=== PATIENT | male | born 1955 | race Two or more races ===

== ENCOUNTER 2017-06-08 14:05 | Emergency (ER) | payer MEDICARE ==
[2017-06-08 14:25] VITALS: BP 123/75
--- NOTE | 2017-06-08 15:01 | RAD ---
HISTORY: Right calf pain and edema Similar examination dated April 28, 2013 TECHNIQUE: Multiple transverse and longitudinal ultrasound images were obtained of the veins of the right lower extremity using grayscale, color Doppler, and spectral Doppler imaging with and without compression and with augmentation. FINDINGS: VEINS: The common femoral vein, deep femoral vein and femoral vein are compressible throughout their course, with normal flow on color Doppler imaging and normal response to augmentation on spectral Doppler imaging. Within the right popliteal vein there is hyperechogenic nonocclusive material that corresponds to more acute looking thrombus on the May 06, 2013 venous duplex examination. SOFT TISSUES: Grossly normal. No large popliteal fossa cyst was identified. IMPRESSION: Sonographic findings are most consistent with chronic nonocclusive thrombus (i.e. "scar") in the right popliteal vein corresponding to thrombus visualized on the May 06, 2013 DVT examination. The remaining visualized veins are clear.
--- NOTE | 2017-06-08 15:15 | UC ---
Lower Extremity/Ankle HPI - HPI Summary HPI Summary: HISTORY OF 2012 DVT IN RIGHT CALF. HAD BEEN ON WARFARIN FOR SEVERAL YEARS, CURRENTLY OFF. 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 NO SHORTNESS OF BREATH. NO CHEST PAIN. - History of Current Complaint Chief Complaint: UCLowerExtremity Stated Complaint: LEG PAIN Time Seen by Provider: 06/08/17 14:18 Hx Obtained From: Patient Onset/Duration: Gradual Onset, Lasting Days, Still Present Severity Initially: Mild Severity Currently: Mild Aggravating Factor(s): Standing, Ambulation Able to Bear Weight: Yes - Risk Factors Gout Risk Factors: Negative DVT Risk Factors: Prior DVT - Allergies/Home Medications Allergies/Adverse Reactions: Allergies Allergy/AdvReac Type Severity Reaction Status Date / Time No Known Allergies Allergy Verified 08/15/16 14:13 Home Medications: Home Medications Aspirin 06/08/17 [History] PMH/Surg Hx/FS Hx/Imm Hx Previously Healthy: Yes - Surgical History Surgical History: Yes Surgery Procedure, Year, and Place: double hernia repair, right lung 2 lobes removed - Family History Known Family History: Positive: Unknown, Other - DVT - Social History Occupation: Employed Part-time, Retired Lives: With Family Alcohol Use: None Substance Use Type: Prescribed Smoking Status (MU): Heavy Every Day Tobacco Smoker Type: Cigarettes Amount Used/How Often: 1 - 2 ppd Have You Smoked in the Last Year: Yes Review of Systems Constitutional: Negative Skin: Negative Eyes: Negative ENT: Negative Respiratory: Negative Cardiovascular: Negative Gastrointestinal: Negative Genitourinary: Negative Motor: Negative Neurovascular: Negative Musculoskeletal: Arthralgia, Calf Tenderness - RIGHT, Myalgia Neurological: Negative Psychological: Negative All Other Systems Reviewed And Are Negative: Yes Physical Exam Triage Information Reviewed: Yes Appearance: Well-Appearing, No Pain Distress, Well-Nourished Vital Signs: Initial Vital Signs Temp 98.2 F 06/08/17 14:16 Pulse 84 06/08/17 14:16 Resp 18 06/08/17 14:16 BP 123/75 06/08/17 14:16 Pulse Ox 97 06/08/17 14:16 Vital Signs Reviewed: Yes Eye Exam: Normal ENT Exam: Normal ENT: Positive: Normal ENT inspection, Hearing grossly normal, TMs normal Dental Exam: Normal Neck exam: Normal Neck: Positive: Supple, Nontender Respiratory: Positive: Chest non-tender, Normal breath sounds, No respiratory distress, No accessory muscle use Cardiovascular Exam: Normal Cardiovascular: Positive: RRR, No Murmur, Pulses Normal, Brisk Capillary Refill Abdominal Exam: Normal Musculoskeletal Exam: Normal Musculoskeletal: Positive: Strength Intact, ROM Intact, No Edema Neurological Exam: Normal Psychological Exam: Normal Skin Exam: Normal Lower Extremity Course/Dx - Differential Dx/Diagnosis Differential Diagnosis/HQI/PQRI: DVT, Fracture (Closed), Sprain, Strain Provider Diagnoses: RIGHT 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 RIGHT LEG PAIN Discharge - Discharge Plan Condition: Stable Disposition: HOME Patient Education Materials: Leg Pain (ED) Referrals: José Rebollar MD [Primary Care Provider] -
== END 2017-06-08 15:12 | disposition home or self-care (01) ==
LOC: UCEAST 14:05
DX: I82.531 Chronic embolism and thrombosis of right popliteal vein (principal); Z86.718 Personal history of other venous thrombosis and embolism; Z72.0 Tobacco use
CPT/HCPCS: 99211; G0463

== ENCOUNTER 2017-08-21 17:02 | Emergency (ER) | payer MEDICARE ==
[2017-08-21 17:26] VITALS: BP 139/79
[2017-08-21] MEDS ORDERED: methylPREDNISolone 125 MG* 2 ML VIAL IM ONE (18:16)
[2017-08-21] MEDS ORDERED: Albuterol/Ipratropium NEB.SOL* Albuterol 2.5 MG/Ipratropium 0.5 MG 3 ML INH ONE (18:17)
--- NOTE | 2017-08-21 18:36 | UC ---
Respiratory Complaint HPI - History of Current Complaint Chief Complaint: UCRespiratory Stated Complaint: HEADACHE COUGH Time Seen by Provider: 08/21/17 17:49 - Allergies/Home Medications Allergies/Adverse Reactions: Allergies Allergy/AdvReac Type Severity Reaction Status Date / Time No Known Allergies Allergy Verified 08/21/17 17:26 Home Medications: Home Medications Albuterol 2.5MG/3ML (0.083%)* [Ventolin 2.5 MG/3 ML NEB.NATALIA*] 1 udc PO Q4H PRN 08/21/17 [History Confirmed 08/21/17] PMH/Surg Hx/FS Hx/Imm Hx - Surgical History Surgical History: Yes Surgery Procedure, Year, and Place: double hernia repair, right lung 2 lobes removed - Family History Known Family History: Positive: Unknown, Other - DVT - Social History Alcohol Use: None Substance Use Type: Prescribed Smoking Status (MU): Heavy Every Day Tobacco Smoker Type: Cigarettes Amount Used/How Often: 1 - 2 ppd Have You Smoked in the Last Year: Yes Physical Exam Vital Signs: Initial Vital Signs Temp 96.9 F 08/21/17 17:21 Pulse 77 08/21/17 17:21 Resp 18 08/21/17 17:21 BP 139/79 08/21/17 17:21 Pulse Ox 99 08/21/17 17:21 UC Diagnostic Evaluation - Laboratory O2 Sat by Pulse Oximetry: 99
--- NOTE | 2017-08-21 23:14 | UC ---
Maximo Lowery Nikita, scribed for Debra Calhoun DO on 08/21/17 at 2302 . Respiratory Complaint HPI - HPI Summary HPI Summary: This patient is a 62 year old M presenting to [facility] with a chief complaint of cold-like symptoms since 2 days ago s/p exposure to cement dust the same day as getting his flu shot. Pt slept all night last night but still felt lousy today. Symptoms aggravated by exertion. Symptoms alleviated by sleep. Patient reports SOB/wheezing, malaise, nasal and sinus congestion/bassett/pain, cough, mild sore throat, laryngitis. Patient denies CP, fever, diaphoresis, dizziness, and N /V. - History of Current Complaint Chief Complaint: UCRespiratory Stated Complaint: HEADACHE COUGH Time Seen by Provider: 08/21/17 17:49 Hx Obtained From: Patient Onset/Duration: Sudden Onset, Lasting Days - 2 days ago, Still Present Timing: Constant Severity Initially: Moderate Severity Currently: Moderate Pain Intensity: 0 Pain Scale Used: 0-10 Numeric Character: Cough: Productive, Sputum Description: - yellow Aggravating Factors: Exertion Alleviating Factors: Other - sleep Associated Signs And Symptoms: Positive: Dyspnea, Wheezing, URI, Nasal Congestion - Patient reports BASSETT, SOB, malaise, nasal and sinus congestion, cough , mild sore throat, laryngitis, and SOB (worse with exertion). Patient denies CP , fever, diaphoresis, dizziness, and N/V., Hoarseness, Sinus Discomfort. Negative: Fever, Chills, Pleuritic Chest Pain, Hemoptysis, Dizziness - Allergies/Home Medications Allergies/Adverse Reactions: Allergies Allergy/AdvReac Type Severity Reaction Status Date / Time No Known Allergies Allergy Verified 08/21/17 17:26 Home Medications: Home Medications Albuterol 2.5MG/3ML (0.083%)* [Ventolin 2.5 MG/3 ML NEB.NATALIA*] 1 udc PO Q4H PRN 08/21/17 [History Confirmed 08/21/17] PMH/Surg Hx/FS Hx/Imm Hx Endocrine History: Other Other Endocrine History: No DM Cardiovascular History: Other Other Cardiovascular History: no HTN Respiratory History: Bronchitis - chronic, Other Other Respiratory History: no asthma, lower lobes of R lungs removed - Surgical History Surgical History: Yes Surgery Procedure, Year, and Place: double hernia repair, right lung 2 lobes removed - Family History Known Family History: Positive: Other - DVT Negative: Cardiac Disease, Hypertension, Diabetes - Social History Alcohol Use: None Substance Use Type: Prescribed Smoking Status (MU): Heavy Every Day Tobacco Smoker Type: Cigarettes Amount Used/How Often: 1 - 2 ppd Have You Smoked in the Last Year: Yes Cessation Counseling: Patient Advised to Stop Review of Systems Constitutional: Other - malaise; denies fever, diaphoresis ENT: Sore Throat, Nasal Discharge, Sinus Congestion, Other - nasal congestion, laryngitis Respiratory: Shortness Of Breath - worse with exertion, Cough Cardiovascular: Negative Gastrointestinal: Negative Genitourinary: Negative Musculoskeletal: Negative Neurological: Headache, Other - denies dizziness All Other Systems Reviewed And Are Negative: Yes Physical Exam Triage Information Reviewed: Yes Appearance: Well-Appearing, No Pain Distress, Well-Nourished Vital Signs: Initial Vital Signs Temp 96.9 F 08/21/17 17:21 Pulse 77 08/21/17 17:21 Resp 18 08/21/17 17:21 BP 139/79 08/21/17 17:21 Pulse Ox 99 08/21/17 17:21 Vital Signs Reviewed: Yes Eyes: Positive: Conjunctiva Clear. Negative: Discharge ENT: Positive: Hearing grossly normal, Pharyngeal erythema, Nasal congestion, Nasal drainage, Muffled/hoarse voice, Other: - sinus tenderness over maxillary sinuses. Negative: Tonsillar swelling, Tonsillar exudate, Trismus Neck exam: Normal Neck: Positive: Supple, Nontender, No Lymphadenopathy Respiratory: Positive: Decreased breath sounds - on the R base(pt had lower lobes of R lungs removed), Wheezing - Diffuse wheezes on first exam; few scattered wheezes on re-eval with better air movement and subjective improvement and ease of breathing Cardiovascular: Positive: RRR, No Murmur Musculoskeletal Exam: Normal Neurological: Positive: Alert, Muscle Tone Normal Psychological Exam: Normal Psychological: Positive: Age Appropriate Behavior Skin Exam: Normal, Other - Warm, Dry, Normal color UC Diagnostic Evaluation - Laboratory O2 Sat by Pulse Oximetry: 99 Respiratory Course/Dx - Course Course Of Treatment: This patient is a 62 year old M presenting to [facility] with a chief complaint of cold-like symptoms since 2 days ago s/p exposure to cement dust the same day as getting his flu shot. Pt slept all night last night but still felt lousy today. Symptoms aggravated by exertion. Symptoms alleviated by sleep. Patient reports SOB/wheezing, malaise, nasal and sinus congestion/bassett/ pain, cough, mild sore throat, laryngitis. Patient denies CP, fever, diaphoresis , dizziness, and N/V. In course, pt was given a neb treatment. Medications reviewed this visit. Pt will be discharged. Pt is agreeable with this plan. - Differential Dx/Diagnosis Differential Diagnosis/HQI/PQRI: Bronchitis, Exacerbation Of COPD, Lower Resp Infection, Sinusitis Provider Diagnoses: Sinusitis. Bronchospasm. Discharge - Discharge Plan Condition: Stable Disposition: HOME Prescriptions: Amoxicillin/Clavulanate TAB* [Augmentin TAB 875*] 875 mg PO BID #20 tab guaiFENesin ER TAB [Mucinex*] 600 mg PO BID PRN #1 box PRN Reason: Cough predniSONE TAB* [Deltasone TAB*] 40 mg PO DAILY #8 tab Patient Education Materials: Sinusitis (ED), Bronchospasm (ED) Referrals: José Rebollar MD [Primary Care Provider] - 3 Days (Follow up in 3-5 days) Additional Instructions: TRY USING THE NETTI POT IN THE MORNINGS DISCUSSED. YOU MUST ALWAYS USE CLEAN WATER. INHALED BRONCHODILATORS: USE EVERY 4 HOURS WHILE AWAKE You have received a prescription for an inhaled bronchodilator -- a medication which stimulates the airways in the lung to dilate. This improves the flow of air in asthma, bronchitis, and emphysema. These medicines have some similarity to adrenaline, and can cause similar side effects: shakiness, racing heart, and a sense of nervousness. These side effects decrease with time. Contact your doctor if these side effects are severe. Do not over-use the medicine. Too-frequent use of the inhaler may make it ineffective. Call your doctor if the inhaler is not controlling your symptoms at the prescribed doses. EXPECTORANT MEDICATION: WE SENT IN A SCRIPT FOR MUCINEX SO THAT IT IS EASIER FOR YOU TO PICK THE RIGHT MED AT THE PHARMACY. HOWEVER, YOU CAN ALSO GO TO THE [employer] [facility] AND BUY PLAIN GUAIFENESIN WITHOU BINDERS OR FILLERS. An expectorant medicine has been prescribed. This type of drug makes mucous thinner, helping the sinuses, nose, and bronchial tubes to remain free of pus and mucous. Expectorants make a cough less severe and more comfortable, and help infected sinuses drain. In general, antihistamines defeat the purpose of the expectorant by making mucous thicker. They should be avoided unless specifically recommended by your physician. CORTICOSTEROID MEDICATION: You have been given a medicine of the cortisone class. This medication is used to control inflammation or allergy. It is usually only given for a short period of time, until the acute process subsides. There are usually no side effects from short-term use of cortisone-like medications. Some persons feel an increased sense of well-being and are not sleepy at bedtime. Long-term use of cortisone medications is best avoided, unless required for a severe condition. If your condition does not remit, or relapses after the course of corticosteroid medication, you should consult your physician. Contact the physician if you develop lightheadedness, black or tarry stools , swelling of the legs, or significant rapid change in weight. ANTIBIOTICS ARE NOT CURRENTLY INDICATED FOR YOUR CONDITION. hOWEVER, IF YOUR SYMPTOMS WORSEN OR PERSIST FOR OVER THE NEXT 3-5 DAYS, YOU CAN TAKE THE FOLLOWING MEDICATION: AUGMENTIN: Augmentin is a mixture of amoxicillin and clavulanate. Amoxicillin is a member of the penicillin family. It covers the germs likely to cause ear, bronchial, and urinary infections better than plain penicillin. The addition of clavulanate allows it to cover staph infections of the skin, as well as resistant cases of ear and sinus infections. Your physician has chosen Augmentin for you because of the special nature of your situation. Augmentin is best taken with meals. Nausea after taking the medication is rare, but can occur. Diarrhea can occur, particularly in small children. Vaginal yeast infections, and oral thrush in infants are also common. Contact your physician if these problems occur. Allergy to penicillins is common. If you have had an allergic reaction to any drug of the penicillin family, you should never take any other penicillin. Notify your doctor at once if you develop hives, shortness of breath, swelling, or faintness. ANYTIME YOU TAKE AN ANTIBIOTIC, IT IS IMPORTANT TO REPLENISH THE BODY'S SUPPLY OF "GOOD BACTERIA." YOU CAN GET GOOD BACTERIA FROM HIGH QUALITY CULTURED FOODS SUCH LOCAL YOGURT, SOUR KRAUT, CHRISTOPHER OPAL, NATURALLY FERMENTED PICKLES AND PROBIOTIC DRINKS. YOU CAN ALSO GET GOOD BACTERIA FROM A PROBIOTIC SUPPLEMENT. STOP SMOKING: FORGET TO BRING YOUR CIGARETTE MORE OFTEN, UNTIL YOU FORGET TO BUY THEM COMPLETELY! You should stop smoking. The tar and chemicals in cigarette smoke are harmful. Smoking has been shown to cause: emphysema chronic bronchitis lung cancer mouth and throat cancer stomach and pancreas cancer premature aging defects In addition, smoking increases ear and lung infections in children of smokers. The documentation as recorded by the Maximo can Nikita accurately reflects the service I personally performed and the decisions made by me, Debra Calhoun DO.
== END 2017-08-21 19:00 | disposition home or self-care (01) ==
LOC: UCEAST 17:02
DX: J32.9 Chronic sinusitis, unspecified (principal); J98.01 Acute bronchospasm; F17.210 Nicotine dependence, cigarettes, uncomplicated
CPT/HCPCS: 99212; A9270-GY; G0463; J2930

== ENCOUNTER 2017-12-11 11:49 | Emergency (ER) | payer MEDICARE, OTHER ==
[2017-12-11 13:05] VITALS: BP 133/79
== END 2017-12-11 13:55 | disposition left against medical advice (07) ==
LOC: UCEAST 11:49
DX: M79.606 Pain in leg, unspecified (principal); Z53.21 Procedure and treatment not carried out due to patient leaving prior to being seen by health care provider

== ENCOUNTER 2017-12-11 15:56 | Emergency (ER) | payer OTHER | END 2017-12-11 16:12 | disposition left against medical advice (07) | LOC: UCEAST 15:56 | DX: R07.81 Pleurodynia (principal); M79.606 Pain in leg, unspecified; M54.2 Cervicalgia; Z53.21 Procedure and treatment not carried out due to patient leaving prior to being seen by health care provider ==

== ENCOUNTER 2019-04-21 08:48 | Emergency (ER) | payer MEDICARE, OTHER ==
[2019-04-21 09:00] VITALS: BP 115/74
--- NOTE | 2019-04-21 09:13 | UC ---
Skin Complaint HPI - HPI Summary HPI Summary: Mr. Mckeon has had a small wound on his left lower leg for about 8 days. He's tried using hydrogen peroxide and salt and is continuing to worsen. It is painful. - History of Current Complaint Chief Complaint: UCSkin Time Seen by Provider: 04/21/19 09:04 Stated Complaint: L LEG WOUND Pain Intensity: 9 - Allergy/Home Medications Allergies/Adverse Reactions: Allergies Allergy/AdvReac Type Severity Reaction Status Date / Time bee venom protein (honey bee) Allergy Rash Verified 04/21/19 09:00 Crab Apples Allergy Rash Uncoded 04/21/19 09:00 Home Medications: Home Medications Ciprofloxacin TAB* [Cipro 500 MG TAB*] 500 mg PO BID 04/21/19 [History Confirmed 04/21/19] Tamsulosin CAP* [Flomax CAP*] 0.4 mg PO DAILY 04/21/19 [History Confirmed ] oxyCODONE TAB* [Roxycodone TAB 5 mg*] 5 mg PO Q4H PRN 04/21/19 [History Confirmed 04/21/19] PMH/Surg Hx/FS Hx/Imm Hx - Additional Past Medical History Additional PMH: He is currently being treated for URI with Cipro. Previously Healthy: Yes - Surgical History Surgical History: Yes Surgery Procedure, Year, and Place: double hernia repair, right lung 2 lobes removed - Family History Known Family History: Positive: Unknown, Other - DVT Negative: Cardiac Disease, Hypertension, Diabetes - Social History Alcohol Use: None Substance Use Type: None Substance Use Comment - Amount & Last Used: occassionaly Smoking Status (MU): Heavy Every Day Tobacco Smoker Type: Cigarettes Amount Used/How Often: 1 ppd Have You Smoked in the Last Year: Yes Review of Systems All Other Systems Reviewed And Are Negative: Yes Skin: Positive: Other - wound Physical Exam - Summary Physical Exam Summary: He has a 2 mm ulcerated area on his left proximal lateral anterior leg. It is surrounded by about 2 mm of erythema. It is mildly indurated and tender. There is no lymphadenopathy. Vital Signs: Initial Vital Signs Temp 97.5 F 04/21/19 08:55 Pulse 88 04/21/19 08:55 Resp 16 04/21/19 08:55 BP 115/74 04/21/19 08:55 Pulse Ox 95 04/21/19 08:55 Course/Dx - Course Course Of Treatment: This is some mild skin infection. He's used some [id number] antibiotic ointment. I will try Bactroban - Diagnoses Provider Diagnosis: Skin infection Discharge - Sign-Out/Discharge Documenting (check all that apply): Patient Departure All imaging exams completed and their final reports reviewed: No Studies - Discharge Plan Condition: Stable Disposition: HOME Patient Education Materials: Acute Wound Care (ED) Referrals: José Rebollar MD [Primary Care Provider] - - Billing Disposition and Condition Condition: STABLE Disposition: Home
== END 2019-04-21 09:17 | disposition home or self-care (01) ==
LOC: UCEAST 08:48
DX: L08.9 Local infection of the skin and subcutaneous tissue, unspecified (principal); J06.9 Acute upper respiratory infection, unspecified; F17.210 Nicotine dependence, cigarettes, uncomplicated
CPT/HCPCS: 99212; G0463